=== PATIENT | female | born 1970 | race Caucasian/White ===

== ENCOUNTER → 2016-11-06 | Outpatient (CLI) | payer OTHER ==
--- NOTE | 2016-11-07 11:43 | KCIC ---
Bilateral digital screening mammograms with CAD: HISTORY Routine screening COMPARISON Comparison is made to previous examinations dated back to 10/28/2012. FINDINGS Breast density category C. The skin and nipples show no abnormalities. No abnormal lymph nodes are seen in the axilla. The breast parenchyma shows heterogeneous density. There are no dominant masses, suspicious calcifications or architectural distortions. IMPRESSION No evidence of malignancy. Recommend routine annual mammographic screening. This study was interpreted with the benefit of Computerized Aided Detection (CAD). Mammography is not 100% sensitive in detecting breast cancer. Therefore, a self breast exam and a clinical breast exam are very important. A negative mammogram does not negate a clinically suspicious finding and should not result in a delay in biopsying a clinically suspicious abnormality. BI-RADS category 1. Negative. This patient's information has been entered into a reminder system for the patient to be notified with the results of this examination and a target date for her next mammograms. Electronically signed by: Liz Silver MD (Nov 07, 2016 11:42:05)
== END | disposition home or self-care (01) ==
LOC: KCIC MAMMO 13:25
PROVIDERS: ATTEND Family Medicine
DX: Z12.31 Encounter for screening mammogram for malignant neoplasm of breast (principal)
CPT/HCPCS: G0202; 77067

== ENCOUNTER → 2017-07-22 | Outpatient (CLI) | payer OTHER ==
--- NOTE | 2017-07-22 11:09 | RAD ---
Abdominal ultrasound, 07/22/2017: History: Abdominal pain, blood in stool The gallbladder is small. No gallstones are seen. The common hepatic duct is of normal caliber. No hepatic mass is identified. The pancreas was obscured by overlying bowel. The inferior vena cava and visualized portions of the abdominal aorta are unremarkable. The distal aorta was partially obscured by overlying bowel. The spleen is of normal size. No renal abnormality is detected. No free fluid is evident in the abdomen. IMPRESSION: 1. Obscuration of the pancreas by overlying bowel. 2. No acute abdominal abnormality is detected. Pelvic ultrasound, 07/22/2017: Transabdominal and transvaginal scans were obtained. The uterus measures 9.5 x 6.5 x 5.2 cm. It demonstrates a heterogeneous echo pattern. At least 3 small myometrial nodules are identified. These are hypoechoic and isoechoic. The largest nodule measures 4.1 cm. The appearance is compatible with uterine fibroids. The central uterine echo complex is not thickened. The ovaries are of normal size. Blood flow is present in both ovaries. No adnexal mass is seen. No free fluid is evident in the pelvis. IMPRESSION: Fibroid uterus.
== END | disposition home or self-care (01) ==
LOC: KCIC US 09:10
PROVIDERS: ATTEND Nurse Practitioner
DX: D25.9 Leiomyoma of uterus, unspecified (principal)
CPT/HCPCS: 76700; 76830; 76856

== ENCOUNTER → 2017-12-04 | Outpatient (CLI) | payer OTHER | END | disposition home or self-care (01) | LOC: KCIC MAMMO 12:20 | DX: Z12.31 Encounter for screening mammogram for malignant neoplasm of breast (principal) | CPT/HCPCS: 77067 ==

== ENCOUNTER → 2018-09-15 | Outpatient (CLI) | payer OTHER ==
--- NOTE | 2018-09-15 13:02 | KCIC ---
MRI Lumbar Spine without contrast History: Left low back pain Technique: Multiplanar, multi sequential noncontrast MR imaging was performed of the lumbar spine. Comparison: None Findings: Lumbar vertebral body stature and AP alignment are within normal limits. There is mild degenerative disc disease L2-3 through L4-5. Conus terminates at L1-2. There is no significant marrow edema. There is very mild lumbar levoscoliosis. L2-L3: There is left posterior annular tear. Spinal canal and neural foramina are overall adequate. There is negligible bulge greater in the lateral recesses. There is mild prominence of posterior epidural fat. Neural foramina are overall adequate. Very shallow left extraforaminal protrusion is near the extraforaminal left L2 nerve root without significant impingement. L3-L4: There is mild prominence of posterior epidural fat and facet degenerative change. There is mild buckling of the ligament flavum. There is negligible bulge. Neural foramina are adequate. There is left posterolateral annular tear. L4-L5: There is minimal disc osteophyte complex and bulge. There is left posterolateral annular tear. Spinal canal is adequate. Neural foramina are overall adequate, disc osteophyte complex near the extraforaminal left L4 nerve root without significant displacement. L5-S1: There is negligible posterior protrusion without neural impingement. Spinal canal is widely patent. Neural foramina are adequate. Impression: 1. There is no significant lumbar spinal stenosis or neural foramina compromise. There is multilevel mild degenerative disc disease L2-3 through L4-5, very mild spondylosis. There are multilevel annular tears as stated. Electronically signed by: Rafi Gerard MD (09/15/2018 12:58 PM) [id number]
== END | disposition home or self-care (01) ==
LOC: KCIC MRI 12:03
PROVIDERS: ATTEND Family Medicine
DX: M51.36 Other intervertebral disc degeneration, lumbar region (principal); M47.896 Other spondylosis, lumbar region; M25.78 Osteophyte, vertebrae
CPT/HCPCS: 72148

== ENCOUNTER → 2018-12-25 | Outpatient (CLI) | payer OTHER ==
--- NOTE | 2018-12-26 12:49 | KCIC ---
BILATERAL SCREENING MAMMOGRAM History: Routine screening. Comparison: Bilateral mammogram 12/04/2017 and dating back to 2014. Technique: Routine bilateral digital mammogram views were obtained. Findings: Breast Tissue Density C : The breasts are heterogeneously dense, which may obscure small masses. There are no dominant masses, suspicious microcalcifications, or architectural distortion. IMPRESSION: No mammographic evidence of malignancy. Recommend routine screening. BI-RADS category 1: Negative. The images were reviewed with computer aided detection. Patient information is entered into the reminder system with a target due date for the next screening mammogram. Mammography is the most sensitive method for finding small breast cancers, but it does not detect them all and is not a substitute for careful clinical examination. A negative mammogram does not negate a clinically suspicious finding and should not result in delay in biopsying a clinically suspicious abnormality. "Our facility is accredited by the [employer] Mammography [employer]." Electronically signed by: Reinaldo Izaguirre MD (12/26/2018 12:46 PM) [id number]
== END | disposition home or self-care (01) ==
LOC: KCIC MAMMO 13:57
PROVIDERS: ATTEND Family Medicine
DX: Z12.31 Encounter for screening mammogram for malignant neoplasm of breast (principal)
CPT/HCPCS: 77067

== ENCOUNTER → 2020-05-06 | Outpatient (CLI) | payer OTHER ==
--- NOTE | 2020-05-06 19:16 | KCIC ---
Bilateral digital screening mammograms with 3-D tomosynthesis: Reason for examination: Routine screening. Comparison is made to previous studies dated back to 10/03/2015. Bilateral mammograms in CC and oblique projections were obtained with 2-D imaging and 3-D tomosynthesis imaging on a Siemens Inspiration unit and reviewed on the workstation. Interpretation was made with the benefit of CAD. The skin and nipples show no abnormalities. No abnormal axillary lymph nodes are seen. The breast parenchyma is extremely dense. (Breast density: Category D.) There are no dominant masses, suspicious calcifications or architectural distortion. Impression: No evidence of malignancy. Recommend routine screening. Your patient's mammogram demonstrates that she has dense breast tissue (breast density category C or D), which could hide abnormalities, and if she has other risk factors for breast cancer that have been identified, she might benefit from supplemental screening tests that may be suggested by you as her ordering physician. Dense breast tissue, in and of itself, is a relatively common condition. Therefore, this information is not provided to cause undue concern, but rather to raise your awareness and to promote discussion with your patient regarding the presence of other risk factors, in addition to dense breast tissue. Your patient's mammography results will be sent to her. BI-RAD Category 1: Negative. "Our facility is accredited by the [employer] Mammography [employer]." This patient's information has been entered into a reminder system for the patient to be notified with the results of her examination and a target date for the next mammogram. Electronically signed by: Bárbara Silver MD (05/06/2020 7:13 PM) [id number]
== END ==
LOC: KCIC MAMMO 10:02
PROVIDERS: ATTEND Family Medicine
DX: Z12.31 Encounter for screening mammogram for malignant neoplasm of breast (principal)
CPT/HCPCS: 77063; 77067

== ENCOUNTER → 2021-08-15 | Outpatient (CLI) | payer OTHER ==
--- NOTE | 2021-08-15 14:21 | KCIC ---
Bilateral digital screening mammograms with 3-D tomosynthesis: Reason for examination: Routine screening. Comparison is made to previous studies dated back to 09/30/2014. Bilateral mammograms in CC and oblique projections were obtained with 2-D imaging and 3-D tomosynthes is imaging on a Siemens Inspiration unit and reviewed on the workstation. Interpretation was made wit george the benefit of CAD. The skin and nipples show no abnormalities. No abnormal axillary lymph nodes are seen. The breast par enchyma is heterogeneously dense. (Breast density: Category C.) There are areas of parenchymal asymme try bilaterally which appear to be stable. There are no dominant masses, suspicious calcifications or architectural distortion. Impression: No evidence of malignancy. Recommend routine screening. Your patient's mammogram demonstrates that she has dense breast tissue (breast density category C or D), which could hide abnormalities, and if she has other risk factors for breast cancer that have bee n identified, she might benefit from supplemental screening tests that may be suggested by you as her ordering physician. Dense breast tissue, in and of itself, is a relatively common condition. Therefo re, this information is not provided to cause undue concern, but rather to raise your awareness and t o promote discussion with your patient regarding the presence of other risk factors, in addition to d ense breast tissue. Your patient's mammography results will be sent to her. BI-RAD Category 2: Benign. "Our facility is accredited by the [employer] Mammography [employer]." This patient's information has been entered into a reminder system for the patient to be notified wit h the results of her examination and a target date for the next mammogram. Electronically signed by: Bárbara Silver MD (08/15/2021 2:19 PM) [id number]
== END ==
LOC: KCIC MAMMO 12:34
PROVIDERS: ATTEND Family Medicine
DX: Z12.31 Encounter for screening mammogram for malignant neoplasm of breast (principal)
CPT/HCPCS: 77063; 77067